=== PATIENT | male | born 1955 | race Caucasian/White ===

== ENCOUNTER 2019-11-06 14:12 | Outpatient (CLI) | payer MEDICARE, OTHER, SELFPAY | END 2019-11-06 14:13 | disposition home or self-care (01) | PROVIDERS: PCP Internal Medicine; Visit Provider Clinical Nurse Specialist | DX: H90.3 Sensorineural hearing loss, bilateral (principal) | CPT/HCPCS: 92557; 92567 ==

== ENCOUNTER 2020-01-20 11:30 | Outpatient (RCR) | payer MEDICARE, OTHER, SELFPAY | END 2020-01-20 23:59 | disposition home or self-care (01) | LOC: ANHAUDIO 11:30 | PROVIDERS: PCP Internal Medicine; Visit Provider Internal Medicine | DX: Z46.1 Encounter for fitting and adjustment of hearing aid (principal) | CPT/HCPCS: 92593; 99199; V5264; V5267 ==

== ENCOUNTER 2020-02-12 10:26 | Outpatient (RCR) | payer SELFPAY | END 2020-02-12 23:59 | disposition home or self-care (01) | LOC: ANHAUDIO 10:26 | PROVIDERS: PCP Internal Medicine; Visit Provider Internal Medicine | DX: Z46.1 Encounter for fitting and adjustment of hearing aid (principal) | CPT/HCPCS: 99199 ==

== ENCOUNTER 2020-10-14 11:30 | Outpatient (RCR) | payer SELFPAY | END 2020-11-12 23:59 | disposition home or self-care (01) | LOC: ANHAUDASC 11:30 | PROVIDERS: PCP Internal Medicine; Visit Provider Internal Medicine | DX: Z46.1 Encounter for fitting and adjustment of hearing aid (principal) | CPT/HCPCS: 92593; 99199; V5014 ==

== ENCOUNTER 2021-05-31 07:22 | Outpatient (RCR) | payer SELFPAY | END 2021-08-29 23:59 | disposition home or self-care (01) | LOC: ANHAUDASC 07:22 | PROVIDERS: PCP Internal Medicine; Visit Provider Internal Medicine | DX: Z46.1 Encounter for fitting and adjustment of hearing aid (principal) | CPT/HCPCS: 92593 ==

== ENCOUNTER 2021-10-28 09:15 | Outpatient (RCR) | payer MEDICARE, OTHER, SELFPAY | END 2022-01-26 23:59 | disposition home or self-care (01) | LOC: ANHAUDASC 09:15 | PROVIDERS: PCP Internal Medicine; Visit Provider Internal Medicine | DX: Z46.1 Encounter for fitting and adjustment of hearing aid (principal) | CPT/HCPCS: 92593 ==

== ENCOUNTER 2022-01-04 08:55 | Outpatient (CLI) | payer MEDICARE, OTHER, SELFPAY ==
--- NOTE | ~2022-01-04 | XR_ITS ---
EXAMINATION: XR elbow RT min 3V DATE: 01/04/2022 09:20 INDICATION: Right elbow decreased range of motion. TECHNIQUE: 5 views of right elbow were obtained. COMPARISON: None. FINDINGS: Bone alignment is normal. No fracture. 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 There is an elbow joint effusion. IMPRESSION: 1. Severe elbow joint osteoarthritis. 2. Elbow joint effusion. Reviewed, dictated and finalized at location A.
== END 2022-01-04 08:56 | disposition home or self-care (01) ==
LOC: ANHIMG 09:01
PROVIDERS: PCP Internal Medicine; Visit Provider Nurse Practitioner
DX: M25.421 Effusion, right elbow (principal); M19.021 Primary osteoarthritis, right elbow
CPT/HCPCS: 73080

== ENCOUNTER 2022-04-13 01:16 | Day surgery (SDC) | payer MEDICARE, OTHER, SELFPAY ==
[2022-03-31 15:05] VITALS: BMI 28.4
--- NOTE | 2022-04-12 15:25 | PM.HPGS ---
History of Present Illness History of Present Illness Consent: Risks, benefits, and alternatives have been discussed and questions answered. Patient agrees to proceed with procedure. Chief complaint: hx of colon polyps Narrative: Charlie West is a 66 year old male here for colon cancer screening. He has history of polyps. 5 years ago a tubular adenoma was removed from his ascending colon. 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) History of stroke Persistent atrial fibrillation Pneumonia Seizure Tear of meniscus of right knee Family History Family History Sibling Patient's sister is in good health Patient's brother is in good health Father Skin cancer Mother Pulmonary fibrosis Social History Social History Smoking status: Current every day smoker Tobacco type: cigars Alcohol intake: current Alcohol use details: wine occasionally Substance use type: does not use Living arrangements: with family Spiritual care concerns: No Meds Home Medications and Allergies Home Medications Medication Instructions Recorded Confirmed Type lamotrigine 150 mg tablet 150 mg PO BID 10/22/19 03/31/22 History metoprolol succinate 50 mg 50 mg PO DAILY 10/22/19 03/31/22 History tablet,extended release 24 hr sacubitril 24 mg-valsartan 26 mg 1 tablet PO BID 10/22/19 03/31/22 History tablet (Entresto) spironolactone 25 mg tablet 25 mg PO DAILY 10/22/19 03/31/22 History sertraline 50 mg tablet 50 mg PO DAILY #90 tabs 07/12/21 03/31/22 Rx clonazepam 2 mg tablet 5 mg PO DAILY 10/28/21 03/31/22 History fluticasone propionate 50 1 spray intranasal DAILY PRN 03/31/22 03/31/22 History mcg/actuation nasal Allergy Symptoms spray,suspension Allergies Allergy/AdvReac Type Severity Reaction Status Date / Time No Known Allergies Allergy Verified 04/13/22 09:02 Exam Const: General: alert Orientation/consciousness: patient oriented x3 Resp: Auscultation: clear to auscultation bilaterally Cardio: Rhythm: regular rhythm GI: GI Palp: Yes Soft to palpation and No Tenderness to palpation present (GI) Neuro: General: patient oriented x3 Assessment and Plan Assessment and plan (1) Screening for colon cancer: Code(s): Z12.11 - Encounter for screening for malignant neoplasm of colon Status: Acute Assessment and Plan: Colonoscopy with possible biopsy or polypectomy or cautery or injection of substances.
[2022-04-13 09:03] VITALS: BP 118/89; PULSE 60; RESP 18; TEMP 36.1; O2SAT 95
[2022-04-13] MEDS: LACTATED RINGERS 1,000 ML 150 ML IV CONT (09:15)
--- NOTE | 2022-04-13 09:35 | P.PNAN_ITS ---
Anes - Initial Pre Proc Eval Procedure: Operation Date: 04/13/22 10:30 Proposed Procedures p Screening Colonoscopy - Art Mera MD Date/Time: 04/13/22 09:35 Surgeon: Art Mera MD Pre Op Diagnosis: hx of colon polyps Patient Data Age: 66 Gender: M Height: 1.85 m Weight: 97.6 kg Last Vital Signs Temp 97 F L 04/13/22 09:03 Pulse 60 04/13/22 09:03 Resp 18 04/13/22 09:03 BP 118/89 04/13/22 09:03 Pulse Ox 95 04/13/22 09:03 O2 Del Method Room Air 04/13/22 09:03 Allergies Allergy/AdvReac Type Severity Reaction Status Date / Time No Known Allergies Allergy Verified 04/13/22 09:02 Home Medications Medication Instructions Recorded Confirmed Type lamotrigine 150 mg tablet 150 mg PO BID 10/22/19 03/31/22 History metoprolol succinate 50 mg 50 mg PO DAILY 10/22/19 03/31/22 History tablet,extended release 24 hr sacubitril 24 mg-valsartan 26 mg 1 tablet PO BID 10/22/19 03/31/22 History tablet (Entresto) spironolactone 25 mg tablet 25 mg PO DAILY 10/22/19 03/31/22 History sertraline 50 mg tablet 50 mg PO DAILY #90 tabs 07/12/21 03/31/22 Rx clonazepam 2 mg tablet 5 mg PO DAILY 10/28/21 03/31/22 History fluticasone propionate 50 1 spray intranasal DAILY PRN 03/31/22 03/31/22 History mcg/actuation nasal Allergy Symptoms spray,suspension Patient hx anesthesia problems: none Family hx anesthesia problems: none Results Review: All pre-operative results and documents have been reviewed as part of the pre- operative evaluation. 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) History of stroke Persistent atrial fibrillation Pneumonia Seizure Tear of meniscus of right knee Family History Family History Sibling Patient's sister is in good health Patient's brother is in good health Father Skin cancer Mother Pulmonary fibrosis Social History Social History Smoking status: Current every day smoker Tobacco type: cigars Alcohol intake: current Alcohol use details: wine occasionally Substance use type: does not use Living arrangements: with family Spiritual care concerns: No Anes - Eval Final PreProcedure Day of Procedure 04/13/22 09:35 Patient weight: normal Heart: regular rate and rhythm Lungs: clear to auscultation Airway: Mallampati scale class II Neurological: alert and oriented Last oral intake: >/= 8 hours ASA classification: III Emergent: no Anesthetic plan: proceed Anesthesia type and monitoring: general GIVS and standard monitoring Results Review: All pre-operative results and documents have been reviewed as part of the pre- operative evaluation. Informed Consent: The patient's anesthetic plan and its attendant risks and benefits were discussed with the patient/family/POA. Questions were solicited and answers provided to the satisfaction of the patient/family/POA.
[2022-04-13 10:19] VITALS: BP 80/52; PULSE 81; RESP 18; O2SAT 92
[2022-04-13 10:29] VITALS: BP 90/56; PULSE 88; RESP 18; O2SAT 95
[2022-04-13 10:39] VITALS: BP 102/75; PULSE 83; RESP 20; O2SAT 94
== END 2022-04-13 10:51 | disposition home or self-care (01) ==
PROVIDERS: PCP Internal Medicine; Visit Provider Internal Medicine Gastroenterology
PROC: 0DJD8ZZ Inspection of Lower Intestinal Tract, Via Natural or Artificial Opening Endoscopic (ICD-10-PCS; CPT 45378; principal; 2022-04-13 10:30)
DX: Z12.11 Encounter for screening for malignant neoplasm of colon (principal); K62.1 Rectal polyp; I50.22 Chronic systolic (congestive) heart failure; I48.19 Other persistent atrial fibrillation; G40.909 Epilepsy, unspecified, not intractable, without status epilepticus; F32.A Depression, unspecified; Z86.73 Personal history of transient ischemic attack (TIA), and cerebral infarction without residual deficits; F17.290 Nicotine dependence, other tobacco product, uncomplicated
CPT/HCPCS: 45385; 88305; J2001; J2704; J7120

== ENCOUNTER 2022-06-27 07:49 | Outpatient (CLI) | payer MEDICARE, OTHER, SELFPAY | END 2022-06-27 07:50 | disposition home or self-care (01) | PROVIDERS: PCP Internal Medicine; Visit Provider Nurse Practitioner | DX: H90.3 Sensorineural hearing loss, bilateral (principal) | CPT/HCPCS: 92557; 92567 ==

== ENCOUNTER 2022-07-13 09:30 | Outpatient (RCR) | payer MEDICARE, OTHER, SELFPAY | END 2022-09-15 23:59 | disposition home or self-care (01) | LOC: ANHAUDASC 09:30 | PROVIDERS: PCP Internal Medicine; Visit Provider Internal Medicine | DX: Z46.1 Encounter for fitting and adjustment of hearing aid (principal) | CPT/HCPCS: V5014; V5264 ==

== ENCOUNTER 2022-10-20 08:31 | Outpatient (RCR) | payer MEDICARE, OTHER, SELFPAY | END 2023-01-18 23:59 | disposition home or self-care (01) | LOC: ANHBWCAUD 08:31 | PROVIDERS: PCP Internal Medicine; Visit Provider Internal Medicine | DX: Z46.1 Encounter for fitting and adjustment of hearing aid (principal) | CPT/HCPCS: 92593 ==

== ENCOUNTER 2023-07-27 11:15 | Outpatient (RCR) | payer MEDICARE, OTHER, SELFPAY | END 2023-10-25 23:59 | disposition home or self-care (01) | LOC: ANHAUDASC 11:15 | PROVIDERS: PCP Internal Medicine; Visit Provider Nurse Practitioner | DX: Z46.1 Encounter for fitting and adjustment of hearing aid (principal) | CPT/HCPCS: 92593 ==

== ENCOUNTER 2023-10-05 10:48 | Outpatient (RCR) | payer MEDICARE, OTHER, SELFPAY | END 2024-01-03 23:59 | disposition home or self-care (01) | LOC: ANHAUDASC 10:48 | PROVIDERS: PCP Internal Medicine | DX: Z46.1 Encounter for fitting and adjustment of hearing aid (principal) | CPT/HCPCS: 92593 ==

== ENCOUNTER 2024-02-29 11:39 | Outpatient (RCR) | payer MEDICARE, OTHER, SELFPAY | END 2024-05-29 23:59 | disposition home or self-care (01) | LOC: ANHAUDASC 11:39 | PROVIDERS: PCP Nurse Practitioner; Visit Provider Nurse Practitioner | DX: Z46.1 Encounter for fitting and adjustment of hearing aid (principal) | CPT/HCPCS: 92593 ==

== ENCOUNTER 2024-05-06 10:50 | Outpatient (CLI) | payer MEDICARE, OTHER, SELFPAY | END 2024-05-06 10:51 | disposition home or self-care (01) | LOC: ANHAUDASC 10:51 | PROVIDERS: PCP Nurse Practitioner; Visit Provider Nurse Practitioner | DX: H90.3 Sensorineural hearing loss, bilateral (principal); H93.13 Tinnitus, bilateral | CPT/HCPCS: 92557; 92567 ==

== ENCOUNTER 2024-09-05 08:30 | Outpatient (RCR) | payer MEDICARE, OTHER, SELFPAY | END 2024-09-16 23:59 | disposition home or self-care (01) | LOC: ANHAUDASC 08:30 | PROVIDERS: PCP Nurse Practitioner; Visit Provider Nurse Practitioner | DX: Z46.1 Encounter for fitting and adjustment of hearing aid (principal) | CPT/HCPCS: V5014 ==

== ENCOUNTER 2024-12-16 11:00 | Outpatient (RCR) | payer MEDICARE, SELFPAY | END 2024-12-19 23:59 | disposition home or self-care (01) | LOC: ANHAUDASC 11:00 | PROVIDERS: PCP Internal Medicine; Visit Provider Nurse Practitioner | DX: Z46.1 Encounter for fitting and adjustment of hearing aid (principal) | CPT/HCPCS: 99199; V5014; V5264 ==